=== PATIENT | female | born 1965 | race Caucasian/White ===

== ENCOUNTER 2016-09-28 18:19 | Emergency (ER) | payer SELFPAY ==
[~2016-09-28] VITALS: Ht 162.6 cm; Wt 70.9 kg
[~2016-09-28 18:19] MED LIST: LEVO125T4 PO
[2016-09-28] MEDS ORDERED: IBUPROFEN 600 MG TABLET PO ONE (22:00)
[2016-09-28 22:06] VITALS: BP 133/78
== END 2016-09-28 22:07 | disposition home or self-care (01) ==
LOC: EMS 18:21
DX: M72.2 Plantar fascial fibromatosis (principal); F17.210 Nicotine dependence, cigarettes, uncomplicated; E03.9 Hypothyroidism, unspecified
CPT/HCPCS: 99284; 99406

== ENCOUNTER 2017-07-08 12:45 | Emergency (ER) | payer MEDICAID ==
[~2017-07-08] VITALS: Ht 162.6 cm; Wt 72.7 kg
[2017-07-08] MEDS ORDERED: METHOCARBAMOL 500 MG TABLET PO ONE (15:00)
[2017-07-08] MEDS ORDERED: KETOROLAC TROMETHAMINE 60 MG/2 ML VIAL IM ONE (15:00)
[2017-07-08 16:26] VITALS: BP 131/78
== END 2017-07-08 16:42 | disposition home or self-care (01) ==
LOC: EMS 12:52
DX: S13.4XXA Sprain of ligaments of cervical spine, initial encounter (principal); E03.9 Hypothyroidism, unspecified; V49.40XA Driver injured in collision with unspecified motor vehicles in traffic accident, initial encounter; Y93.89 Activity, other specified; Y92.89 Other specified places as the place of occurrence of the external cause; Y99.8 Other external cause status
CPT/HCPCS: 72040; 96372; 99284; J1885

== ENCOUNTER 2018-04-12 18:34 | Emergency (ER) | payer SELFPAY ==
[~2018-04-12] VITALS: Ht 162.6 cm; Wt 63.6 kg
[2018-04-12] MEDS ORDERED: IBUPROFEN 600 MG TABLET PO ONE (20:30)
[2018-04-12 21:36] VITALS: BP 148/80
== END 2018-04-12 21:42 | disposition home or self-care (01) ==
LOC: EMS 18:34
DX: M25.561 Pain in right knee (principal); R03.0 Elevated blood-pressure reading, without diagnosis of hypertension; E03.9 Hypothyroidism, unspecified; F17.210 Nicotine dependence, cigarettes, uncomplicated
CPT/HCPCS: 29505; 29530; 99284

== ENCOUNTER 2018-12-13 18:25 | Emergency (ER) | payer SELFPAY ==
[~2018-12-13] VITALS: Ht 162.6 cm; Wt 63.6 kg
[2018-12-13] MEDS ORDERED: KETOROLAC TROMETHAMINE 30 MG/ML VIAL IM ONE (19:45)
[2018-12-13] MEDS ORDERED: DIAZEPAM 5 MG TABLET PO ONE (19:45)
[2018-12-13 19:48] LABS: APPEARANCE,URINE CLEAR (CLEAR); BILIRUBIN,URINE NEGATIVE (NEGATIVE); GLUCOSE, URINE (UA) NEGATIVE (NEGATIVE); KETONES,URINE NEGATIVE (NEGATIVE); LEUKOCYTE ESTERASE ,URINE NEGATIVE (NEGATIVE); NITRATE,URINE NEGATIVE (NEGATIVE); OCCULT BLOOD,URINE NEGATIVE (NEGATIVE); PROTEIN,URINE NEGATIVE (NEGATIVE)
[2018-12-13 21:49] VITALS: BP 122/91
== END 2018-12-13 22:05 | disposition home or self-care (01) ==
LOC: EMS 18:26
DX: S39.012A Strain of muscle, fascia and tendon of lower back, initial encounter (principal); E03.9 Hypothyroidism, unspecified; Z87.891 Personal history of nicotine dependence; X50.1XXA Overexertion from prolonged static or awkward postures, initial encounter; Y93.89 Activity, other specified; Y92.89 Other specified places as the place of occurrence of the external cause; Y99.8 Other external cause status
CPT/HCPCS: 81003; 96372; 99283; J1885

== ENCOUNTER 2024-07-13 17:20 | Emergency (ER) | payer SELFPAY ==
[~2024-07-13] VITALS: Ht 162.6 cm; Wt 72.0 kg
[2024-07-13 17:35] VITALS: BP 162/79; PULSE 77; RESP 16; TEMP 98.2; O2SAT 100
[2024-07-13] MEDS: LIDOCAINE 5% TRANSDERMAL PATCH TD ONE (22:27)
[2024-07-13] MEDS: TraMADol HCL 50 MG TABLET PO ONE (22:28)
[2024-07-13] MEDS ORDERED: CYCL-448 PO (23:08)
[2024-07-13] MEDS ORDERED: LIDO700A15 TP (23:08)
== END 2024-07-13 23:26 | disposition home or self-care (01) ==
LOC: EMS 17:20
DX: M54.50 Low back pain, unspecified (principal); E03.9 Hypothyroidism, unspecified; Z90.89 Acquired absence of other organs
CPT/HCPCS: 72100; 99283